=== PATIENT | male | born 1975 | race Caucasian/White ===

== ENCOUNTER → 2018-03-23 | Outpatient (CLI) | payer BC ==
--- NOTE | 2018-03-23 17:54 | PCVCIMAG ---
APPROVED REPORT Study performed: 03/23/2018 15:05:49 Exam: Stress Echocardiogram Indication: Chest pain , Hyperlipidemia,Borderline Hypertension Patient Location: Echo lab Stress Nurse: Meghan Daley RN Room #: 2 Status: routine Ht: 6 ft 1 in HR: 86 bpm BP: 125/100 mmHg Rhythm: NSR Medical History Medical History: Borderline HTN, Hyperlipidemia Cardiac Risk Factors: HTN, Hyperlipidemia, FHX of CAD Previous Cardiac Procedures: none Exercise History: Physically active Procedure The patient underwent an Exercise Stress Test using the Darrick Protocol. Blood pressure, heart rate, and EKG were monitored. An Echocardiogram was performed by heavy equipment technician in four stages in quad fashion. At peak stress, four selected images were obtained and placed side by side with resting images for comparison. Stress Test Details Stress Test: Exercise stress testing was performed using a Darrick protocol. HR Resting HR: 86 bpmMax Heart Rate (APMHR): 176 bpm Max HR Achieved: 169 bpmTarget HR (85% APMHR): 149 bpm % of APMHR: 96 Recovery HR: 112 bpm HR response to stress: Normal HR response to stress BP Resting BP: 150/100 mmHg Max BP: 174/80 mmHg Recovery BP: 160/96 mmHg BP response to stress: Normal blood pressure response to stress. ECG Resting ECG: Sinus Rhythm Stress ECG: Sinus Rhythm ST Change: Non-ischemic Arrhythmia: Rare PAC,PVC Recovery ECG: Sinus Rhythm Recovery ST Change: Non-ischemic Recovery Arrhythmia: rare PAC Clinical Reason for Termination: Maximal effort Stress Symptoms: none Exercise duration: 13 min 01 sec Highest Stage Achieved: Stage 5: 5.0 mph at 18% grade. Exercise capacity: 17.2 METs Scale: Active Angina Score: None No complications. Stress ECG Conclusion The patient exercised according to the DARRICK protocol for 13:01 mins; achieving a work level of 17.20 METS. The resting heart rate of 86 bpm glenis to a maximum heart rate of 169 bpm. This value represents 96 % of the maximal, age-predicted heart rate. The resting blood pressure of 150/100 mmHg, glenis to a maximum blood pressure of 174/80 mmHg. The exercise test was stopped due to fatigue. Pre-Stress Echo The resting Echocardiogram showed normal left ventricular contractility with an estimated Ejection Fraction of about 55-60%. Normal wall motion in all segments on baseline images. Post-Stress Echo The stress Echocardiogram showed normal left ventricular contractility with an estimated Ejection Fraction of about 65-70%. Normal augmentation of wall motion in all segments on post stress images. Clinical No clinical or ECG evidence for ischemia. Conclusion Clinical Response: Non-ischemic Exercise Capacity: Superior Stress ECG Response: Non-ischemic Stress Echo Images: Non-ischemic No clinical, EKG or echocardiographic evidence for ischemia. No echocardiographic evidence for exercise induced ischemia. Normal stress echocardiogram with maximal exercise stress. 1. low risk study No prior study available for comparison. <Conclusion> No clinical, EKG or echocardiographic evidence for ischemia. No echocardiographic evidence for exercise induced ischemia. Normal stress echocardiogram with maximal exercise stress. 1. low risk study
== END | disposition home or self-care (01) ==
LOC: PCVCIMAG 15:16
PROVIDERS: ATTEND Internal Medicine
DX: R07.9 Chest pain, unspecified (principal); I10 Essential (primary) hypertension; E78.5 Hyperlipidemia, unspecified; Z82.49 Family history of ischemic heart disease and other diseases of the circulatory system
CPT/HCPCS: 93325; 93351